=== PATIENT | female | born 2000 | race Caucasian/White ===

== ENCOUNTER 2018-03-13 14:30 | Outpatient (RCR) | payer BC ==
[2018-03-09 16:05] VITALS: BP 127/85
[~2018-03-13 14:30] MED LIST: RABIES IMM GLOB(HUMAN) 150U/ML IM ONLY ONE; RABIES VAC(HUMAN) DIPL 2.5/KIT IM ONLY ONE
[2018-03-13 15:56] VITALS: BP 131/74
[2018-03-20] MEDS ORDERED: RABIES VAC(HUMAN) DIPL 2.5/KIT IM ONLY ONE (14:10)
== END 2018-04-07 11:16 | disposition home or self-care (01) ==
LOC: SPU 14:30
PROVIDERS: ATTEND Emergency Medicine
DX: S01.551A Open bite of lip, initial encounter (principal); W54.0XXA Bitten by dog, initial encounter
CPT/HCPCS: 90376; 90471; 90675; 96372